=== PATIENT | female | born 1990 | race Asian ===

== ENCOUNTER 2019-04-02 16:57 | Emergency (ER) | payer OTHER ==
[~2019-04-02] VITALS: Ht 160 cm; Wt 127.0 kg
[~2019-04-02 16:57] MED LIST: NAPROSYN500 MG PO
[2019-04-02 17:32] VITALS: TEMP 98.1
[2019-04-02 18:53] VITALS: BP 138/89
== END 2019-04-02 18:53 | disposition home or self-care (01) ==
LOC: ED 16:57
DX: Z33.1 Pregnant state, incidental (principal)
CPT/HCPCS: 81000; 81025; 99283

== ENCOUNTER 2019-07-20 13:12 | Emergency (ER) | payer OTHER ==
[~2019-07-20] VITALS: Ht 160 cm; Wt 133.8 kg
[2019-07-20 14:52] VITALS: BP 179/89; TEMP 97.9
== END 2019-07-20 14:52 | disposition home or self-care (01) ==
LOC: ED 13:12
DX: J06.9 Acute upper respiratory infection, unspecified (principal); J02.9 Acute pharyngitis, unspecified
CPT/HCPCS: 87502; 87651; 99283

== ENCOUNTER 2020-07-06 12:52 | Emergency (ER) | payer OTHER ==
[~2020-07-06] VITALS: Ht 165.1 cm; Wt 127.0 kg
[2020-07-06 15:35] VITALS: BP 136/87; TEMP 97.8
== END 2020-07-06 15:35 | disposition home or self-care (01) ==
LOC: ED 12:52
DX: S02.2XXA Fracture of nasal bones, initial encounter for closed fracture (principal); S00.03XA Contusion of scalp, initial encounter; F17.210 Nicotine dependence, cigarettes, uncomplicated; W06.XXXA Fall from bed, initial encounter; W22.8XXA Striking against or struck by other objects, initial encounter; Y92.89 Other specified places as the place of occurrence of the external cause
CPT/HCPCS: 99283

== ENCOUNTER 2020-11-01 17:05 | Emergency (ER) | payer OTHER ==
[~2020-11-01] VITALS: Ht 165.1 cm; Wt 136.1 kg
[2020-11-01 17:44] VITALS: BP 137/86; TEMP 97.3
== END 2020-11-01 18:28 | disposition home or self-care (01) ==
LOC: ED 17:05
DX: N76.0 Acute vaginitis (principal)
CPT/HCPCS: 99282

== ENCOUNTER 2021-02-10 00:49 | Emergency (ER) | payer OTHER ==
[~2021-02-10] VITALS: Ht 165.1 cm; Wt 136.1 kg
[2021-02-10 03:30] VITALS: BP 151/81; TEMP 97.8
== END 2021-02-10 03:35 | disposition home or self-care (01) ==
LOC: ED 00:49
PROC: 2W3RX1Z Immobilization of Left Lower Leg using Splint (ICD-10-PCS; principal; 2021-02-10)
DX: S93.492A Sprain of other ligament of left ankle, initial encounter (principal); M25.572 Pain in left ankle and joints of left foot; M77.32 Calcaneal spur, left foot; X50.1XXA Overexertion from prolonged static or awkward postures, initial encounter; Y92.89 Other specified places as the place of occurrence of the external cause
CPT/HCPCS: 81025; 96372; 99283; J1885

== ENCOUNTER 2021-04-17 17:11 | Emergency (ER) | payer OTHER ==
[~2021-04-17] VITALS: Ht 165.1 cm; Wt 127.0 kg
[2021-04-17 17:18] VITALS: TEMP 97.8
[2021-04-17 18:24] VITALS: BP 138/72
== END 2021-04-17 18:24 | disposition home or self-care (01) ==
LOC: ED 17:11
DX: A54.9 Gonococcal infection, unspecified (principal); A56.8 Sexually transmitted chlamydial infection of other sites
CPT/HCPCS: 81000; 81025; 87490; 87590; 96372; 99283; J0696

== ENCOUNTER 2021-12-03 09:41 | Emergency (ER) | payer OTHER ==
[~2021-12-03] VITALS: Ht 165.1 cm; Wt 159.7 kg
[2021-12-03 11:05] VITALS: BP 129/84; TEMP 97.9
== END 2021-12-03 11:05 | disposition home or self-care (01) ==
LOC: ED 09:41
DX: B34.9 Viral infection, unspecified (principal); U07.1 COVID-19
CPT/HCPCS: 87502; 87635; 87651; 99283; U0003

== ENCOUNTER 2022-02-03 01:28 | Emergency (ER) | payer OTHER ==
[~2022-02-03] VITALS: Ht 167.6 cm; Wt 165.6 kg
[2022-02-03 02:11] LABS: PLATELET COUNT 234 K/uL (152-353)
[2022-02-03 02:21] LABS: PARTIAL THROMBOPLASTIN TIME 26.5 SECONDS (24.5-33.6)
[2022-02-03 02:25] LABS: POTASSIUM 3.4 mmol/L (3.6-5.2); SODIUM 135 mmol/L (136-145)
[2022-02-03 02:59] VITALS: BP 133/81
== END 2022-02-03 02:59 | disposition home or self-care (01) ==
LOC: ED 01:28 → EDBD 01:28 → ED 02:59
PROVIDERS: Family Medicine
DX: M94.0 Chondrocostal junction syndrome [Tietze] (principal); M54.2 Cervicalgia
CPT/HCPCS: 36415; 80053; 82550; 84484; 85027; 85610; 85730; 93005; 96374; 99284; J1885

== ENCOUNTER 2022-03-22 05:26 | Emergency (ER) | payer OTHER ==
[~2022-03-22] VITALS: Ht 167.6 cm; Wt 165.6 kg
[2022-03-22 05:55] VITALS: BP 151/99; TEMP 98.7
== END 2022-03-22 06:00 | disposition home or self-care (01) ==
LOC: ED 05:26
DX: K02.9 Dental caries, unspecified (principal); E66.01 Morbid (severe) obesity due to excess calories
CPT/HCPCS: 99281

== ENCOUNTER 2022-05-10 16:03 | Emergency (ER) | payer OTHER ==
[~2022-05-10] VITALS: Ht 162.6 cm; Wt 129.3 kg
[2022-05-10 16:09] VITALS: BP 156/94; TEMP 98.8
== END 2022-05-10 16:52 | disposition home or self-care (01) ==
LOC: ED 16:03
DX: R05.8 Other specified cough (principal)
CPT/HCPCS: 99281

== ENCOUNTER 2022-10-02 15:04 | Emergency (ER) | payer OTHER ==
[~2022-10-02] VITALS: Ht 162.6 cm; Wt 136.1 kg
[2022-10-02 15:20] VITALS: BP 156/73; TEMP 97.3
== END 2022-10-02 15:44 | disposition home or self-care (01) ==
LOC: ED 15:04
DX: K08.89 Other specified disorders of teeth and supporting structures (principal)
CPT/HCPCS: 99281

== ENCOUNTER 2022-11-17 19:41 | Emergency (ER) | payer OTHER ==
[~2022-11-17] VITALS: Ht 162.6 cm; Wt 127.0 kg
[2022-11-17 19:54] VITALS: BP 164/80; TEMP 97.7
[2022-11-17 20:26] LABS: PLATELET COUNT 254 K/uL (152-353)
[2022-11-17 20:29] LABS: POTASSIUM 3.2 mmol/L (3.6-5.2); SODIUM 137 mmol/L (136-145)
== END 2022-11-17 21:24 | disposition home or self-care (01) ==
LOC: ED 19:41
PROVIDERS: Family Medicine
DX: S29.011A Strain of muscle and tendon of front wall of thorax, initial encounter (principal); R07.89 Other chest pain
CPT/HCPCS: 36415; 80053; 80307; 81002; 81025; 84484; 85027; 93005; 96372; 99283; J1885